=== PATIENT | male | born 1965 | race Caucasian/White ===

== ENCOUNTER 2022-10-04 01:47 | Emergency (ER) | payer BC, OTHER ==
--- NOTE | 2022-10-04 02:40 | ERPHSYRPT ---
- History of Present Illness Time Seen by Provider: 10/04/22 02:22 Source: patient Exam Limitations: no limitations Patient Subjective Stated Complaint: pt states he has pain on left side of anus since tuesday morning, and states he has been unable to sit. states he cannot get relief Triage Nursing Assessment: pt is alert and oriented, laying on right side in bed, states pain in bottom 10/10 Physician History: Patient is here with rectal pain, rectal lesion. Has been going on 3 to 4 days. 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 No history of hemorrhoids. Although he has been having more straining. States that he is constipated. No bleeding. Tenderness, lesion to the area. No other falls or traumas. No fever or other systemic signs of illness. Timing/Duration: day(s) Severity: moderate Modifying Factors: Improves With: medication, other Associated Symptoms: other Allergies/Adverse Reactions: chlorzoxazone [From Parafon Forte] Allergy (Mild, Verified 04/08/12 19:13) Home Medications: Albuterol Sulfate [Ventolin] 5 mg IH QID 04/08/12 [History] Budesonide/Formoterol Fumarate [Symbicort 80-4.5 Mcg Inhaler] BID 04/08/12 [History] Hx Tetanus, Diphtheria Vaccination/Date Given: (1984) Hx Influenza Vaccination/Date Given: No Hx Pneumococcal Vaccination/Date Given: No Travel Risk - International Travel Have you traveled outside of the country in past 3 weeks: No - Coronavirus Screening Are you exhibiting any of the following symptoms?: No Close contact with a COVID-19 positive Pt in past 14-21 Days: Yes - Vaccine Status Have you recieved a Covid-19 vaccination: Yes Medicare 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 - Vaccination Dates Date of 2cond Vaccination (if applicable): unknown - Review of Systems Constitutional: No Fever, No Chills Eyes: No Symptoms Ears, Nose, & Throat: No Symptoms Respiratory: No Cough, No Dyspnea Cardiac: No Chest Pain, No Edema, No Syncope Abdominal/Gastrointestinal: Other (Anal lesion), No Abdominal Pain, No Nausea, No Vomiting, No Diarrhea Genitourinary Symptoms: No Dysuria Musculoskeletal: No Back Pain, No Neck Pain Skin: No Rash Neurological: No Dizziness, No Focal Weakness, No Sensory Changes Psychological: No Symptoms Endocrine: No Symptoms All Other Systems: Reviewed and Negative - Past Medical History Pertinent Past Medical History: Yes Cardiac History: High Cholesterol Respiratory History: COPD, Sleep Apnea - Past Surgical History Past Surgical History: Yes Gastrointestinal: Cholecystectomy, Hernia Repair Musculoskeletal: Orthopedic Surgery - Social History Smoking Status: Current every day smoker Exposure to second hand smoke: No Drug Use: none Patient Lives Alone: No - Nursing Vital Signs Nursing Vital Signs: Pain Scale Pain Intensity 10 - Physical Exam General Appearance: no apparent distress, alert Eye Exam: PERRL/EOMI, eyes nml inspection Ears, Nose, Throat Exam: normal ENT inspection, TMs normal, pharynx normal, moist mucous membranes Neck Exam: normal inspection, non-tender, supple, full range of motion Respiratory Exam: normal breath sounds, lungs clear, No respiratory distress Cardiovascular Exam: regular rate/rhythm, normal heart sounds, normal peripheral pulses Gastrointestinal/Abdomen Exam: soft, normal bowel sounds, other (At approximately the 7 o'clock position there is tenderness without any fluctuance. Some surrounding redness without obvious cellulitis or other infection. No bleeding, does not appear to be an overwhelming anal lesion or obvious hemorrhoid.), No tenderness, No mass Back Exam: normal inspection, normal range of motion, No CVA tenderness, No vertebral tenderness Extremity Exam: normal inspection, normal range of motion, pelvis stable Neurologic Exam: alert, oriented x 3, cooperative, normal mood/affect, nml cerebellar function, nml station & gait, sensation nml, No motor deficits Skin Exam: normal color, warm, dry, No rash Lymphatic Exam: No adenopathy - Course Nursing assessment & vital signs reviewed: Yes - Progress Progress: improved Progress Note: 10/04/22 02:47 Patient has anal lesion at 7 o'clock position. Tenderness. No obvious infection, abscess, fistula. Not an overwhelming fissure either. Differential diagnosis includes developing fissure, developing abscess, developing cancer, developing hemorrhoid. Given all this I did discuss it with the patient. We made the decision for conservative management with zinc oxide, stool softeners, antibiotics. I do feel this is reasonable as long as the patient can get close follow-up with PCP. He requested a work note so he can see the PCP this week. I do feel this is reasonable. He should return here without hesitation should he experience any new or different symptoms, if he cannot see his PCP. At that point time we could consider a CT scan or other more invasive investigative options. Counseled pt/family regarding: diagnosis, need for follow-up - Departure Clinical Impression: Anal fissure Condition: Stable Critical Care Time: No Referrals: JAIME CENTENO [Primary Care Provider] - Follow up/PCP as directed Instructions: Wound Care (DC) Prescriptions: Zinc Oxide [Boudreauxs] 57 gm TP BID 14 Days #100 Sennosides/Docusate Sodium [Docusate Sodium-Sennosides Tab] 1 each PO BID 30 Days #60 tablet Doxycycline Hyclate 100 mg [Vibramycin 100 MG] 100 mg PO BID #14 tab
== END 2022-10-04 02:45 | disposition home or self-care (01) ==
LOC: ED 01:47
DX: K60.2 Anal fissure, unspecified (principal); K62.89 Other specified diseases of anus and rectum; E78.5 Hyperlipidemia, unspecified; Z79.899 Other long term (current) drug therapy; Z72.0 Tobacco use
CPT/HCPCS: 99281

== ENCOUNTER 2023-07-31 02:29 | Emergency (ER) | payer BC ==
[2023-07-31 02:52] VITALS: TEMP 97.8
--- NOTE | 2023-07-31 03:01 | ERPHSYRPT ---
- History of Present Illness Time Seen by Provider: 07/31/23 02:30 Source: patient Exam Limitations: no limitations Patient Subjective Stated Complaint: pt states that at approx 2315 he tripped on something and fell forward and landed on concrete to his left knee and face. Triage Nursing Assessment: pt brought to room 9 via wheelchair after ambulating into hospital and to scale for weight acquisition independently with slow steady gait. pt is alert and oriented times three, pt is able to speak in complete sentences, able to move all extremities (limited to left leg due to pain), and with resp even and unlabored. pt denies LOC, blackwell, cp, sob, lightheadedness, dizziness, difficulty breathing, n/v, diarrhea, change in appetite, difficulty with urination or bowel elimination. pt has small abrasion over his right eyebrow. pt reports 9/10 left knee pain, no wound or deformity noted. slight swelling to left knee. skin is dry, warm, and intact. pt is able to wiggle toes. denies numbness or tingling. color and cap refill to left foot are within normal limits and bilat pedal pulses palpable. Physician History: 57yo m presents w/ complaints of left knee pain that started after he fell this AM while moving boxes. Pt states he tripped over a box and landed on his knee, also hit his head on the pavement but denies any pain in his head or neck, denies LOC. Pt states he has been able to walk w/o difficulties but states walking does worsen his pain. Pt reports the pain is over the knee cap and in the back of his knee most significantly. Pt reports ice helps the pain, he has not taken medication for it. Pt denies cp, soa, n/v/abdominal pain. Method of Injury: fell Occurred: this morning Quality: constant, aching Severity of Pain-Max: mild Severity of Pain-Current: mild Lower Extremities Pain: knee: left Modifying Factors: Improves With: cold therapy (improves), movement (worsens) Associated Symptoms: none Body Map: 1 - left knee pain Allergies/Adverse Reactions: chlorzoxazone [From Parafon Forte] Allergy (Mild, Verified 07/31/23 02:33) Home Medications: Empagliflozin [Jardiance] 10 mg PO DAILY 07/31/23 [History] Metformin HCl 500 mg [Glucophage 500 MG] 500 mg PO BIDWM 07/31/23 [History] Rosuvastatin Calcium 20 mg PO HS 07/31/23 [History] Sitagliptin Phosphate [Januvia] 100 mg PO DAILY 07/31/23 [History] Hx Tetanus, Diphtheria Vaccination/Date Given: (unknown) Hx Influenza Vaccination/Date Given: No Hx Pneumococcal Vaccination/Date Given: No Immunizations Up to Date: No Travel Risk - International Travel Have you traveled outside of the country in past 3 weeks: No - Coronavirus Screening Are you exhibiting any of the following symptoms?: No Close contact with a COVID-19 positive Pt in past 14-21 Days: No - Vaccine Status Have you recieved a Covid-19 vaccination: Yes 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: [employer] - Vaccination Dates Date of 2cond Vaccination (if applicable): unknown - Review of Systems Constitutional: No Fever, No Chills Eyes: No Symptoms Respiratory: No Cough, No Dyspnea Cardiac: No Chest Pain, No Edema, No Syncope Abdominal/Gastrointestinal: No Abdominal Pain, No Nausea, No Vomiting, No Diarrhea Musculoskeletal: Arthralgias, Fall, Joint Pain - Past Medical History Pertinent Past Medical History: Yes Neurological History: No Pertinent History ENT History: No Pertinent History Cardiac History: High Cholesterol Respiratory History: COPD, Sleep Apnea Endocrine Medical History: Diabetes Type II Musculoskeletal History: No Pertinent History GI Medical History: No Pertinent History History: No Pertinent History Psycho-Social History: No Pertinent History Male Reproductive Disorders: No Pertinent History - Past Surgical History Past Surgical History: Yes Neuro Surgical History: No Pertinent History Cardiac: No Pertinent History Respiratory: No Pertinent History Gastrointestinal: Cholecystectomy, Hernia Repair Genitourinary: No Pertinent History Musculoskeletal: Orthopedic Surgery Male Surgical History: No Pertinent History Other Surgical History: removal of disc. - Social History Smoking Status: Current every day smoker How long have you smoked: 11 yrs old Exposure to second hand smoke: No Drug Use: none Patient Lives Alone: No - Nursing Vital Signs Nursing Vital Signs: Initial Vital Signs Pulse Rate 86 07/31/23 02:37 Respiratory Rate 18 07/31/23 02:37 Blood Pressure 108/82 07/31/23 02:37 O2 Sat by Pulse Oximetry 95 07/31/23 02:37 Pain Scale Pain Intensity 9 - Physical Exam General Appearance: alert Cardiovascular/Respiratory Exam: chest non-tender, normal breath sounds, regular rate/rhythm, no respiratory distress Gastrointestinal/Abdominal Exam: non-tender, guarding Hips Exam: bilateral: non-tender, normal inspection, no evidence of injury Legs Exam: right leg: non-tender, normal inspection, normal range of motion, left leg: bone tenderness (over patella), limited range of motion (limited 2/2 pain), pain, bilateral leg: no evidence of injury Knees Exam: right knee: non-tender, normal inspection, normal range of motion, left knee: bone tenderness (over patella), pain (over patella), bilateral knee: no evidence of injury Ankle Exam: bilateral ankle: non-tender, normal inspection, normal range of motion, no evidence of injury Neuro/Tendon Exam: normal sensation, normal motor functions Mental Status Exam: alert, oriented x 3, cooperative SpO2 Interpretation: normal SpO2: 96 O2 Delivery: Room Air Ordered Tests: Active Orders 24 hr Category Date Time Status FEMUR Stat Exams 07/31/23 02:54 Taken KNEE (3 VIEWS) Stat Exams 07/31/23 02:55 Taken LOWER LEG Stat Exams 07/31/23 02:55 Taken - Progress Progress Note: 07/31/23 03:48 xr knee showed non-displaced fx of distal patella plan to place immobilization brace, pt to f/u w/ orthopedics at [facility] clinic on 08/01/23 pt informed to ice/heat/elevate for pain relief informed to limit ambulation as much as possible and remain in immobilizer Counseled pt/family regarding: diagnosis, rad results Medical Desision Making - Diagnostic Testing Diagnostic test were ordered, analyzed, and reviewed by me: Yes Radiological Interpretation: Interpreted by me - Risk of complications Minimal Risk: Minimal risk of morbidity - Departure Departure Disposition: Home Clinical Impression: Patella fracture Qualifiers: Encounter type: initial encounter Fracture type: closed Fracture morphology: transverse Fracture alignment: nondisplaced Laterality: left Qualified Code(s): S82.035A - Nondisplaced transverse fracture of left patella, initial encounter for closed fracture Condition: Stable Critical Care Time: No Referrals: JAIME CENTENO [Primary Care Provider] - Follow up/PCP as directed Additional Instructions: immobilization brace, pt to f/u w/ orthopedics at walk in clinic on 08/01/23 pt informed to ice/heat/elevate for pain relief informed to limit ambulation as much as possible and remain in immobilizer
[2023-07-31 04:05] VITALS: BP 132/73; PULSE 81; RESP 17; O2SAT 95
--- NOTE | 2023-07-31 08:36 | XRAY ---
Indication: Pain following fall. Comparison: None 2 view left femur demonstrates infrapatella anterior cortical fracture and minimal scattered vascular calcifications. No other bony, articular, or soft tissue abnormalities.
--- NOTE | 2023-07-31 08:36 | XRAY ---
Indication: Pain following fall. Comparison: None 3 view left knee demonstrates infrapatella anterior cortical fracture and minimal scattered vascular calcifications. No other bony, articular, or soft tissue abnormalities.
--- NOTE | 2023-07-31 08:38 | XRAY ---
Indication: Pain following fall. Comparison: None 2 view left lower leg demonstrates infrapatella anterior cortical fracture, tiny heel spurs, and minimal scattered vascular calcifications. No other bony, articular, or soft tissue abnormalities.
== END 2023-07-31 04:13 | disposition home or self-care (01) ==
LOC: ED 02:29
DX: S82.035A Nondisplaced transverse fracture of left patella, initial encounter for closed fracture (principal); W01.0XXA Fall on same level from slipping, tripping and stumbling without subsequent striking against object, initial encounter; E78.5 Hyperlipidemia, unspecified; E11.9 Type 2 diabetes mellitus without complications; Z79.84 Long term (current) use of oral hypoglycemic drugs; Z79.899 Other long term (current) drug therapy; Z72.0 Tobacco use
CPT/HCPCS: 73552; 73562; 73590; 99283; L1830